=== PATIENT | male | born 1960 | race African-American/Black ===

== ENCOUNTER 2020-01-18 14:25 | Inpatient (IN) | payer OTHER ==
[2020-01-18] MEDS ORDERED: ALBU8.5H8 IH (15:05)
[2020-01-18] MEDS ORDERED: ACET650S11 RC (15:05)
[2020-01-18] MEDS ORDERED: LEVO500T23 PO (15:05)
[2020-01-18] MEDS ORDERED: ATRO2DRO4 SL (15:05)
[2020-01-18] MEDS ORDERED: MORP20SO SL (15:05)
[2020-01-18] MEDS ORDERED: BISA10SU11 RC (15:05)
[2020-01-18] MEDS ORDERED: METR-147 PO (15:05)
[2020-01-18] MEDS ORDERED: LORA2ORA SL (15:05)
[2020-01-18] MEDS ORDERED: ALBU2.5V38 IH (15:05)
[2020-01-18] MEDS ORDERED: IV NS 0.9% 1,000 ML IV ONE (18:00)
[2020-01-18] MEDS ORDERED: BISACODYL SUPP (10 MG) 10 MG/SUPP.RECT SUPP.RECT RC PRN (19:30)
[2020-01-18] MEDS ORDERED: ACETAMINOPHEN 650 MG/SUPP.RECT RC PRN (19:30)
[2020-01-18] MEDS ORDERED: ATROPINE SULFATE OPHTH SOLN 15 ML BOTTLE SL PRN (19:30)
[2020-01-18] MEDS ORDERED: ALBUTEROL SULFATE INH 18 GM HFA.AER.AD IH PRN (19:30)
[2020-01-18] MEDS ORDERED: MORPHINE SULFATE INJ 2 MG/ML DISP.SYRIN IV PRN (19:30)
[2020-01-18] MEDS ORDERED: ONDANSETRON HCL/PF 4 MG/2 ML VIAL IVP PRN (19:30)
[2020-01-18] MEDS ORDERED: Z GUARD REMEDY 2 OZ OINT TP PRN (19:30)
[2020-01-18] MEDS ORDERED: LORAZEPAM INJ 2 MG/ML VIAL IV PRN (19:30)
[2020-01-18] MEDS ORDERED: ALBUTEROL FS 2.5 MG/3 ML VIAL.NEB IH PRN (19:30)
[2020-01-18] MEDS ORDERED: LEVOFLOXACIN 500 MG /D5W 100ML 500 MG in PREMIX 1 EA IV SCH (20:00)
[2020-01-18] MEDS: Potassium Chloride 20 MEQ in IV D5/0.45 NACL 1,000 ML IV PRN (20:26)
[2020-01-18] MEDS: METRONIDAZOLE 500MG/ NS 100ML 500 MG in PREMIX 1 EA IV SCH (21:39)
[2020-01-19] MEDS ORDERED: IV NS 0.9% 250 ML IV PRN
[2020-01-19] MEDS: METRONIDAZOLE 500MG/ NS 100ML 500 MG in PREMIX 1 EA IV SCH ×2 (05:38→12:24)
[2020-01-19] MEDS: PANTOPRAZOLE 40 MG VIAL IV SCH (09:00)
[2020-01-19] MEDS ORDERED: LEVOFLOXACIN 750 MG /D5W 150ML 750 MG in PREMIX 1 EA IV SCH ×3 (09:00→18:00)
[2020-01-19] MEDS: ENOXAPARIN SODIUM 40 MG/0.4 ML DISP.SYRIN SQ SCH (10:20)
[2020-01-19] MEDS: Potassium Chloride 20 MEQ in IV D5/0.45 NACL 1,000 ML IV PRN (10:22)
[2020-01-19] MEDS ORDERED: Sodium Phosphate 30 MMOL in IV NS 0.9% 250 ML IV SCH (12:30)
[2020-01-19] MEDS ORDERED: PIPERACILLIN /TAZOBACTAM 3.375 G in IV D5W 100 ML IV SCH (14:00)
[2020-01-19] MEDS ORDERED: PIPERACILLIN /TAZOBACTAM 3.375 G in IV D5W 50 ML IV ONE (14:00)
[2020-01-19] MEDS: PIPERACILLIN /TAZOBACTAM 3.375 G in IV D5W 100 ML IV SCH (19:45)
[2020-01-19] MEDS: VANCOMYCIN 500 MG in IV D5W 100 ML IV SCH (20:00)
[2020-01-20] MEDS: Potassium Chloride 20 MEQ in IV D5/0.45 NACL 1,000 ML IV PRN (01:51)
[2020-01-20] MEDS: VANCOMYCIN 500 MG in IV D5W 100 ML IV SCH ×3 (03:02→19:58)
[2020-01-20] MEDS: PIPERACILLIN /TAZOBACTAM 3.375 G in IV D5W 100 ML IV SCH ×3 (04:08→21:03)
[2020-01-20] MEDS: ENOXAPARIN SODIUM 40 MG/0.4 ML DISP.SYRIN SQ SCH (08:23)
[2020-01-20] MEDS: PANTOPRAZOLE 40 MG VIAL IV SCH (08:24)
[2020-01-21] MEDS: Potassium Chloride 20 MEQ in IV D5/0.45 NACL 1,000 ML IV PRN ×2 (01:47→16:50)
[2020-01-21] MEDS: VANCOMYCIN 500 MG in IV D5W 100 ML IV SCH ×3 (03:01→20:41)
[2020-01-21] MEDS: PIPERACILLIN /TAZOBACTAM 3.375 G in IV D5W 100 ML IV SCH ×3 (04:03→20:41)
[2020-01-21] MEDS: PANTOPRAZOLE 40 MG VIAL IV SCH (08:05)
[2020-01-21] MEDS: ENOXAPARIN SODIUM 40 MG/0.4 ML DISP.SYRIN SQ SCH (09:00)
[2020-01-21] MEDS ORDERED: POTASSIUM CHLORIDE 10 MEQ/50 ML PREMIXED IVPB FOR PERIPHERAL LINE IV ONE (11:00)
[2020-01-21] MEDS ORDERED: IV NS 0.9% 500 ML IV ONE (11:00)
[2020-01-21] MEDS ORDERED: NEUTRA PHOS 1 POWD.PACKET PO ONE (11:00)
[2020-01-21] MEDS: Magnesium 1GM/D5W 100ML PREMIX 100 ML IV SCH ×2 (11:05→12:12)
[2020-01-21] MEDS: POTASSIUM CL. PREMIX PERIPHER. 50 ML IV SCH ×2 (13:22→14:54)
[2020-01-22] MEDS: VANCOMYCIN 500 MG in IV D5W 100 ML IV SCH ×3 (03:51→19:21)
[2020-01-22] MEDS: PIPERACILLIN /TAZOBACTAM 3.375 G in IV D5W 100 ML IV SCH ×3 (03:51→21:05)
[2020-01-22] MEDS: Potassium Chloride 20 MEQ in IV D5/0.45 NACL 1,000 ML IV PRN (06:55)
[2020-01-22] MEDS: ENOXAPARIN SODIUM 40 MG/0.4 ML DISP.SYRIN SQ SCH (08:47)
[2020-01-22] MEDS: PANTOPRAZOLE 40 MG VIAL IV SCH (08:47)
[2020-01-22] MEDS ORDERED: Sodium Phosphate 15 MMOL in IV NS 0.9% 245 ML IV SCH (14:30)
[2020-01-23] MEDS: VANCOMYCIN 500 MG in IV D5W 100 ML IV SCH ×2 (03:05→12:05)
[2020-01-23] MEDS: PIPERACILLIN /TAZOBACTAM 3.375 G in IV D5W 100 ML IV SCH ×2 (04:12→12:06)
[2020-01-23] MEDS: PANTOPRAZOLE 40 MG VIAL IV SCH (09:12)
[2020-01-23] MEDS: ENOXAPARIN SODIUM 40 MG/0.4 ML DISP.SYRIN SQ SCH (09:17)
[2020-01-23] MEDS: POTASSIUM PHOSPHATE MM 7.5 MMOL in IV NS 0.9% 100 ML IV SCH ×2 (10:45→15:14)
[2020-01-23] MEDS: Potassium Chloride 20 MEQ in IV D5/0.45 NACL 1,000 ML IV PRN (20:30)
[2020-01-23] MEDS: CEFEPIME 2 GM in IV D5W 100 ML IV SCH (20:40)
[2020-01-24] MEDS: CEFEPIME 2 GM in IV D5W 100 ML IV SCH ×3 (05:00→20:35)
[2020-01-24] MEDS: PANTOPRAZOLE 40 MG VIAL IV SCH (09:24)
[2020-01-24] MEDS: ENOXAPARIN SODIUM 40 MG/0.4 ML DISP.SYRIN SQ SCH (09:25)
[2020-01-24] MEDS: Potassium Chloride 20 MEQ in IV D5/0.45 NACL 1,000 ML IV PRN (12:47)
[2020-01-25] MEDS: Potassium Chloride 20 MEQ in IV D5/0.45 NACL 1,000 ML IV PRN (02:23)
[2020-01-25] MEDS: CEFEPIME 2 GM in IV D5W 100 ML IV SCH ×3 (05:09→22:05)
[2020-01-25] MEDS ORDERED: TPN/PPN PER PHARMACY IV PRN (08:00)
[2020-01-25] MEDS ORDERED: IV D5/0.45 NACL 1,000 ML IV SCH ×2 (08:00→15:00)
[2020-01-25] MEDS: PANTOPRAZOLE 40 MG VIAL IV SCH (09:13)
[2020-01-25] MEDS: ENOXAPARIN SODIUM 40 MG/0.4 ML DISP.SYRIN SQ SCH (09:14)
[2020-01-25] MEDS: Magnesium 1GM/D5W 100ML PREMIX 100 ML IV SCH ×2 (13:08→14:38)
[2020-01-25] MEDS ORDERED: TPN BAG #1 IV PRN ×2 (14:30)
[2020-01-25] MEDS: BLOOD SUGAR DIAGNOSTIC 1 EACH STRIP IN SCH (17:33)
[2020-01-26] MEDS: BLOOD SUGAR DIAGNOSTIC 1 EACH STRIP IN SCH ×4 (00:26→17:49)
[2020-01-26] MEDS: CEFEPIME 2 GM in IV D5W 100 ML IV SCH ×3 (04:54→20:33)
[2020-01-26] MEDS: PANTOPRAZOLE 40 MG VIAL IV SCH (08:30)
[2020-01-26] MEDS ORDERED: ENOXAPARIN SODIUM 40 MG/0.4 ML DISP.SYRIN SQ SCH (09:00)
[2020-01-26] MEDS: POTASSIUM CL. PREMIX PERIPHER. 50 ML IV SCH ×6 (11:05→16:35)
[2020-01-26] MEDS ORDERED: Magnesium 1GM/D5W 100ML PREMIX 100 ML IV SCH (11:30)
[2020-01-26] MEDS ORDERED: POTASSIUM CL. PREMIX PERIPHER. 50 ML IV SCH (12:00)
[2020-01-26] MEDS: FAT EMULSION 20% 500 ML in PREMIX 1 EA IV SCH (12:33)
[2020-01-26] MEDS ORDERED: Sodium Phosphate 15 MMOL in IV NS 0.9% 245 ML IV SCH (17:00)
[2020-01-26] MEDS: Magnesium 1GM/D5W 100ML PREMIX 100 ML IV SCH ×2 (20:33→21:19)
[2020-01-27] MEDS: BLOOD SUGAR DIAGNOSTIC 1 EACH STRIP IN SCH ×4 (00:12→17:28)
[2020-01-27] MEDS: INSULIN REGULAR, HUMAN 100 UNIT/ML 3 ML VIAL SQ PRN ×2 (00:13→05:31)
[2020-01-27] MEDS ORDERED: TPN BAG #3 IV SCH ×2 (00:30)
[2020-01-27] MEDS: CEFEPIME 2 GM in IV D5W 100 ML IV SCH ×3 (04:55→20:54)
[2020-01-27] MEDS ORDERED: SODIUM CL FOR INHALATION 3% 15 ML VIAL.NEB IH ONE (08:30)
[2020-01-27] MEDS: PANTOPRAZOLE 40 MG VIAL IV SCH (09:41)
[2020-01-27] MEDS ORDERED: TPN BAG #4 IV PRN ×2 (13:30)
[2020-01-27] MEDS ORDERED: Calcium Gluconate 1GM/10ML 4.65 MEQ in IV D5W 50 ML IV ONE (15:00)
[2020-01-27] MEDS: Magnesium 1GM/D5W 100ML PREMIX 100 ML IV SCH ×4 (15:22→17:12)
[2020-01-27] MEDS: POTASSIUM PHOSPHATE MM 15 MMOL in IV NS 0.9% 250 ML IV SCH (22:44)
[2020-01-28] MEDS: BLOOD SUGAR DIAGNOSTIC 1 EACH STRIP IN SCH ×5 (00:44→23:46)
[2020-01-28] MEDS: POTASSIUM PHOSPHATE MM 15 MMOL in IV NS 0.9% 250 ML IV SCH (03:20)
[2020-01-28] MEDS: CEFEPIME 2 GM in IV D5W 100 ML IV SCH ×3 (06:04→20:41)
[2020-01-28] MEDS: INSULIN REGULAR, HUMAN 100 UNIT/ML 3 ML VIAL SQ PRN (06:20)
[2020-01-28] MEDS: PANTOPRAZOLE 40 MG VIAL IV SCH (09:12)
[2020-01-28] MEDS ORDERED: TPN BAG #5 IV PRN ×2 (13:30)
[2020-01-28] MEDS ORDERED: IV NS 0.9% 500 ML IV ONE (18:00)
[2020-01-28] MEDS: DEXTROSE 50%-WATER 50 ML DISP.SYRIN IV PRN (18:46)
[2020-01-28] MEDS: NOREPINEPHRINE 8 MG in IV NS 0.9% 242 ML IV PRN ×2 (21:34→21:52)
[2020-01-29] MEDS: CEFEPIME 2 GM in IV D5W 100 ML IV SCH ×3 (05:01→22:00)
[2020-01-29] MEDS: BLOOD SUGAR DIAGNOSTIC 1 EACH STRIP IN SCH ×3 (05:13→18:37)
[2020-01-29] MEDS: DEXTROSE 50%-WATER 50 ML DISP.SYRIN IV PRN (05:14)
[2020-01-29] MEDS: PANTOPRAZOLE 40 MG VIAL IV SCH (08:40)
[2020-01-29] MEDS: FAT EMULSION 20% 500 ML in PREMIX 1 EA IV SCH (12:54)
[2020-01-29] MEDS: POTASSIUM CL. PREMIX PERIPHER. 50 ML IV SCH ×4 (16:51→21:05)
[2020-01-30] MEDS: BLOOD SUGAR DIAGNOSTIC 1 EACH STRIP IN SCH ×5 (00:06→23:28)
[2020-01-30] MEDS: INSULIN REGULAR, HUMAN 100 UNIT/ML 3 ML VIAL SQ PRN ×3 (00:59→12:51)
[2020-01-30] MEDS: CEFEPIME 2 GM in IV D5W 100 ML IV SCH ×3 (05:01→20:37)
[2020-01-30] MEDS: PANTOPRAZOLE 40 MG VIAL IV SCH (08:44)
[2020-01-30] MEDS ORDERED: TPN BAG #7 IV PRN ×2 (09:00)
[2020-01-30] MEDS: NOREPINEPHRINE 8 MG in IV NS 0.9% 242 ML IV PRN ×3 (11:07→22:42)
[2020-01-30] MEDS: Magnesium 1GM/D5W 100ML PREMIX 100 ML IV SCH ×2 (12:49→14:10)
[2020-01-30] MEDS ORDERED: TPN BAG #8 IV PRN ×2 (15:00)
[2020-01-30] MEDS: IV NS 0.9% 250 ML IV PRN (15:15)
[2020-01-30] MEDS: DEXTROSE 50%-WATER 50 ML DISP.SYRIN IV PRN (18:37)
[2020-01-31] MEDS: NOREPINEPHRINE 8 MG in IV NS 0.9% 242 ML IV PRN ×3 (04:04→15:30)
[2020-01-31] MEDS: CEFEPIME 2 GM in IV D5W 100 ML IV SCH ×3 (04:04→20:13)
[2020-01-31] MEDS: BLOOD SUGAR DIAGNOSTIC 1 EACH STRIP IN SCH ×4 (05:58→23:25)
[2020-01-31] MEDS: PANTOPRAZOLE 40 MG VIAL IV SCH (08:50)
[2020-01-31] MEDS ORDERED: IV Sodium Chloride 3% 500 ML 500 ML IV ONE (09:30)
[2020-01-31] MEDS ORDERED: TPN BAG #8 IV SCH ×5 (10:00)
[2020-01-31] MEDS: NOREPINEPHRINE 32 MG in IV NS 0.9% 218 ML IV PRN (21:22)
[2020-01-31] MEDS ORDERED: TPN BAG #9 IV SCH ×2 (22:00)
[2020-01-31] MEDS: DEXTROSE 50%-WATER 50 ML DISP.SYRIN IV PRN (23:27)
[2020-02-01] MEDS: BLOOD SUGAR DIAGNOSTIC 1 EACH STRIP IN SCH ×3 (05:56→17:06)
[2020-02-01] MEDS: CEFEPIME 2 GM in IV D5W 100 ML IV SCH ×2 (05:56→13:41)
[2020-02-01] MEDS: PANTOPRAZOLE 40 MG VIAL IV SCH (08:43)
[2020-02-01] MEDS ORDERED: TPN BAG #9 IV PRN ×4 (10:04→10:05)
[2020-02-01] MEDS: Sodium Bicarbonate 100 MEQ in IV D5W 1,000 ML IV PRN (11:46)
[2020-02-01] MEDS: NOREPINEPHRINE 32 MG in IV NS 0.9% 218 ML IV PRN (14:22)
[2020-02-01] MEDS: FLUCONAZOLE IN NS 100 MG in PREMIX 1 EA IV SCH ×2 (20:59)
[2020-02-01] MEDS ORDERED: TPN BAG #10 IV PRN ×2 (21:00)
[2020-02-01] MEDS: MEROPENEM 1 G in IV NS 0.9% 100 ML IV SCH (21:27)
[2020-02-01] MEDS: VANCOMYCIN 0.75 GM in IV D5W 250 ML IV SCH (21:55)
[2020-02-02] MEDS: BLOOD SUGAR DIAGNOSTIC 1 EACH STRIP IN SCH ×4 (00:07→17:37)
[2020-02-02] MEDS: INSULIN REGULAR, HUMAN 100 UNIT/ML 3 ML VIAL SQ PRN ×2 (00:11→11:26)
[2020-02-02] MEDS: Sodium Bicarbonate 100 MEQ in IV D5W 1,000 ML IV PRN ×3 (07:18→21:26)
[2020-02-02] MEDS ORDERED: TPN BAG #10 IV PRN ×2 (07:30)
[2020-02-02] MEDS: PANTOPRAZOLE 40 MG VIAL IV SCH (08:45)
[2020-02-02] MEDS: MEROPENEM 1 G in IV NS 0.9% 100 ML IV SCH ×2 (08:46→20:00)
[2020-02-02] MEDS: VANCOMYCIN 0.75 GM in IV D5W 250 ML IV SCH (09:56)
[2020-02-02] MEDS: NOREPINEPHRINE 32 MG in IV NS 0.9% 218 ML IV PRN ×2 (10:09→21:26)
[2020-02-02] MEDS: POTASSIUM CL. PREMIX PERIPHER. 50 ML IV SCH ×4 (11:09→14:28)
[2020-02-02] MEDS ORDERED: TPN BAG #11 IV PRN ×2 (12:00)
[2020-02-02] MEDS: DEXTROSE 50%-WATER 50 ML DISP.SYRIN IV PRN (17:11)
[2020-02-02] MEDS: VANCOMYCIN 500 MG in IV D5W 100 ML IV SCH (20:30)
[2020-02-02] MEDS: IV NS 0.9% 250 ML IV PRN (21:26)
[2020-02-02] MEDS: FLUCONAZOLE IN NS 100 MG in PREMIX 1 EA IV SCH ×2 (21:26)
[2020-02-03] MEDS: BLOOD SUGAR DIAGNOSTIC 1 EACH STRIP IN SCH ×2 (00:32→06:25)
[2020-02-03] MEDS ORDERED: TPN BAG #12 IV PRN ×2 (05:00)
[2020-02-03] MEDS: INSULIN REGULAR, HUMAN 100 UNIT/ML 3 ML VIAL SQ PRN (06:26)
[2020-02-03] MEDS: PANTOPRAZOLE 40 MG VIAL IV SCH (09:24)
[2020-02-03] MEDS: MEROPENEM 1 G in IV NS 0.9% 100 ML IV SCH (09:24)
[2020-02-03] MEDS: VANCOMYCIN 500 MG in IV D5W 100 ML IV SCH (09:25)
[2020-02-03] MEDS: NOREPINEPHRINE 32 MG in IV NS 0.9% 218 ML IV PRN (09:28)
== END 2020-02-03 12:20 | disposition expired | DRG 720 ==
DX: A41.51 Sepsis due to Escherichia coli [E. coli] (principal); E86.0 Dehydration; R13.10 Dysphagia, unspecified; E83.42 Hypomagnesemia; C14.0 Malignant neoplasm of pharynx, unspecified; C78.00 Secondary malignant neoplasm of unspecified lung; Z68.1 Body mass index [BMI] 19.9 or less, adult; Z79.51 Long term (current) use of inhaled steroids; Z79.899 Other long term (current) drug therapy; Z66 Do not resuscitate; E43 Unspecified severe protein-calorie malnutrition; R62.7 Adult failure to thrive; E83.39 Other disorders of phosphorus metabolism; E87.2 Acidosis; D68.9 Coagulation defect, unspecified; J43.2 Centrilobular emphysema; E87.6 Hypokalemia; J96.22 Acute and chronic respiratory failure with hypercapnia; Y95 Nosocomial condition; J18.9 Pneumonia, unspecified organism; Z87.891 Personal history of nicotine dependence; Z85.118 Personal history of other malignant neoplasm of bronchus and lung; R64 Cachexia; X58.XXXA Exposure to other specified factors, initial encounter; Y92.9 Unspecified place or not applicable; S11.90XA Unspecified open wound of unspecified part of neck, initial encounter